=== PATIENT | male | born 1995 | race Caucasian/White ===

== ENCOUNTER 2018-01-23 19:51 | Emergency (ER) | payer SELFPAY ==
[~2018-01-23] VITALS: Ht 180.3 cm; Wt 117.9 kg
[~2018-01-23 19:51] MED LIST: AMOX500C2 PO; ANTI15DR4 RIGHT EAR; CIPR500T4 PO; HYDR-34 PO; METR500T21 PO; MUPI22OI TOP; NEOM10DR9 OT; ONDA8TAB13 PO
[2018-01-23] MEDS ORDERED: AMOXICILLIN 500 MG (POLYMOX) CAP PO STA (20:51)
[2018-01-23] MEDS ORDERED: NAPR-1071 PO (20:56)
[2018-01-23] MEDS ORDERED: AMOX500C2 PO (20:56)
--- NOTE | 2018-01-23 20:56 | ED EENT ---
History of Present Illness General Chief Complaint: Dental Problems/Pain Stated Complaint: DENTAL PAIN Nursing Triage Note: c/o r lower dental pain Source: patient Exam Limitations: no limitations History of Present Illness Date Seen by Provider: Jan 23, 2018 Time Seen by Provider: 20:52 Initial Comments To ER with right lower dental pain for about one week. Has been calling dentists all day today without yet being able to schedule an appointment. States that he had a Break off of one of his teeth on the bottom about a year ago but only a week ago did this actually start hurting. Timing/Duration: gradual Severity: moderate Location: mouth Allergies and Home Medications Allergies Coded Allergies: NKANo Known Allergies (Unverified Allergy, Mild, 02/10/09) Home Medications Ciprofloxacin HCl 500 Mg Tablet, 500 MG PO BID Prescribed by: BLAYNE LOYA on 05/04/16 1235 Metronidazole 500 Mg Tablet, 500 MG PO BID Prescribed by: BLAYNE LOYA on 05/04/16 1235 Ondansetron 8 Mg Tab.rapdis, 8 MG PO Q6H PRN for NAUSEA Prescribed by: BLAYNE LOYA on 05/04/16 1235 Patient Home Medication List Home Medication List Reviewed: Yes Review of Systems Constitutional: see HPI Eyes: No Symptoms Reported Ears: No Symptoms Reported Nose: no symptoms reported Mouth: see HPI Throat: no symptoms reported Respiratory: no symptoms reported Cardiovascular: no symptoms reported Musculoskeletal: no symptoms reported Past Fnftjnw-Iqjrnl-Jissjn Hx Patient Social History Alcohol Use: Denies Use Recreational Drug Use: No Recent Foreign Travel: No Contact w/Someone Who Travel: No Recent Infectious Disease Expo: No Physical Abuse: No Sexual Abuse: No Immunizations Up To Date Tetanus Booster (TDap): More than 5yrs Past Medical History Surgeries: No Respiratory: No Cardiac: No Neurological: No Reproductive Disorders: No Gastrointestinal: No Musculoskeletal: No Endocrine: No Cancer: No Psychosocial: No Nursing Suicide Risk Score: 0 Integumentary: No Blood Disorders: No Family Medical History Other Conditions/Hx Physical Exam Vital Signs Vital Signs - First Documented 01/23/18 20:45 Temp 98.4 Pulse 95 Resp 18 B/P (MAP) 159/75 (103) Pulse Ox 97 General Appearance: WD/WN, no apparent distress Eyes: bilateral eye normal inspection, bilateral eye PERRL, bilateral eye EOMI Ears: bilateral ear auricle normal, bilateral ear canal normal, bilateral ear TM normal Mouth/Throat: normal mouth inspection, pharynx normal, other (no fluctuant abscess palpable. No swelling.) Neck: non-tender, full range of motion Respiratory: no respiratory distress, no accessory muscle use Neurologic/Psychiatric: alert, normal mood/affect, oriented x 3 Skin: normal color, warm/dry Progress/Results/Core Measures My Orders Orders - SHANTANU FRAGOSO APRN Amoxicillin Capsule (Polymox Capsule) (01/23/18 20:51) Lidocaine 2% Viscous 15 Ml (Xylocaine Vi (01/23/18 21:00) Rx-Hydrocodone/Apap 5-325 Mg (Rx-Vicodin (01/23/18 21:00) Vital Signs/I&O 01/23/18 20:45 Temp 98.4 Pulse 95 Resp 18 B/P (MAP) 159/75 (103) Pulse Ox 97 Blood Pressure Mean: 103 Departure Impression Primary Impression: Pain, dental Disposition: 01 HOME, SELF-CARE Condition: Stable Departure-Patient Inst. Decision time for Depature: 20:54 Referrals: NO,LOCAL PHYSICIAN (PCP/Family) Primary Care Physician Patient Instructions: Dental Pain (DC) Add. Discharge Instructions: 1. Antibiotics as directed. Continue to call a dentist tomorrow to make an appointment to be seen as soon as possible. All discharge instructions reviewed with patient and/or family. Voiced understanding. Scripts Naproxen (Naprosyn) 500 Mg Tablet 500 MG PO BID PRN for PAIN-SEVERE, #30 TAB Prov: SHANTANU FRAGOSO APRN 01/23/18 Amoxicillin (Amoxicillin) 500 Mg Capsule 500 MG PO TID, #21 CAP Prov: SHANTANU FRAGOSO APRN 01/23/18 Images Mouth/Nose 1 - Tenderness SHANTANU FRAGOSO APRN Jan 23, 2018 20:56
[2018-01-23] MEDS ORDERED: LIDOCAINE 2% VISCOUS 15 ML UDC PO ONE (21:00)
[2018-01-23] MEDS ORDERED: RX-HYDROCODONE/APAP 5/325 MG #4 TAB PK PO PRN (21:00)
[2018-01-23 21:04] VITALS: BP 159/75
--- OUTSIDE RECORDS SUMMARY | 2018-01-24 12:12 | XMS REPORT ---
Author Author SHAHEEN CAGE [facility] eClinicalWorks Address Unknown Phone Unavailable Care Team Providers Care Division Human Resources Manager Name Role Phone SHAHEEN CAGE CP Unavailable Allergies, Adverse Reactions, Alerts Substance Reaction Event Type N.K.D.A. Info Not Available Non Drug Allergy Problems Problem Type Condition Code Onset Dates Condition Status Assessment Cellulitis, unspecified cellulitis site L03.90 Active Problem Abscess 682.9 Active Medications Medication Code System Code Instructions Start Date End Date Status Dosage Doxycycline Hyclate [facility] [address]-83 100 MG Orally Twice a day Nov 22, 2015 Dec 02, 2015 1 capsule Procedures Procedure Coding System Code Date Office Visit, Est Pt., Level 3 CPT-4 75754 Nov 22, 2015 Vital Signs Date/Time: Nov 22, 2015 Temperature 97.2 F Weight 252 lbs Height 5'10" in BMI 36.15 Index Blood Pressure Diastolic 80 mmHg Blood Pressure Systolic 148 mmHg Cardiac Monitoring Heart Rate 88 bpm BMIPercentile 99.11 % Wt Percentile 99.28 % Results No Known Results Summary Purpose eClinicalWorks Submission
--- OUTSIDE RECORDS SUMMARY | 2018-01-24 12:12 | XMS REPORT ---
Author Author TAMMI BOWIE [facility] eClinicalWorks Address Unknown Phone Unavailable Care Team Providers Care Flight Crew Time Clerk Name Role Phone TAMMI BOWIE CP Unavailable Allergies, Adverse Reactions, Alerts Substance Reaction Event Type N.K.D.A. Info Not Available Non Drug Allergy Problems Problem Type Condition Code Onset Dates Condition Status Assessment Abscess 682.9 Active Problem Abscess 682.9 Active Medications Medication Code System Code Instructions Start Date End Date Status Dosage Sulfamethoxazole-Trimethoprim [facility] [address]-40 800-160 MG Orally 2 times a day May 22, 2015 Jun 01, 2015 1 tablet Procedures Procedure Coding System Code Date Office Visit, Est Pt., Level 3 CPT-4 42161 May 22, 2015 Vital Signs Date/Time: May 22, 2015 Temperature 98.7 F Weight 264.5 lbs Height 5'10" in BMI 37.95 Index Blood Pressure Diastolic 90 mmHg Blood Pressure Systolic 152 mmHg Cardiac Monitoring Heart Rate 88 bpm BMIPercentile 99.47 % Wt Percentile 99.57 % Results No Known Results Summary Purpose eClinicalWorks Submission
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
== END 2018-01-23 21:04 | disposition home or self-care (01) ==
LOC: EDUNIT# 19:51 → ER 19:52
DX: K08.89 Other specified disorders of teeth and supporting structures (principal); Z88.1 Allergy status to other antibiotic agents
CPT/HCPCS: 99283

== ENCOUNTER 2022-03-12 18:55 | Emergency (ER) | payer SELFPAY ==
[~2022-03-12] VITALS: Ht 180 cm; Wt 120.0 kg
[~2022-03-12 18:55] MED LIST changes: -CIPR500T4 PO; +CIPR500T5 PO; +METR-145 PO; -METR500T21 PO; +NAPR-1071 PO; +NAPR-915 PO
[2022-03-12 19:03] VITALS: BP 154/107
--- NOTE | 2022-03-12 19:12 | ED GI ---
General Chief Complaint: Abdominal/GI Problems Stated Complaint: CONSTIPATION Source of Information: Patient Exam Limitations: No Limitations History of Present Illness Date Seen by Provider: March 12, 2022 Time Seen by Provider: 18:56 Initial Comments Patient to the ER by private conveyance chief complaint of significant abdominal pain and feeling the need to have a bowel movement. Last bowel movement was before Sunday. He has been trying since to have a bowel movement with Dulcolax, Gas-X, apple juice and water. He is not nauseated or having any fever. He a large sharp cramping pain while he was on the bathroom and was able to only move a little bit of liquid stool. He does not have a strong history of constipation/obstipation nor does he have any abdominal surgeries. Allergies and Home Medications Allergies Coded Allergies: LILLIANAANo Known Allergies (Unverified Allergy, Mild, 02/10/09) Patient Home Medication List Home Medication List Reviewed: Yes Amoxicillin (Amoxicillin) 500 Mg Capsule, 500 MG PO TID Prescribed by: SHANTANU FRAGOSO on 01/23/182055 Amoxicillin (Amoxicillin) 500 Mg Capsule, 500 MG PO TID Prescribed by: SHANTANU FRAGOSO on 06/10/18 174 Ciprofloxacin HCl (Ciprofloxacin HCl) 500 Mg Tablet, 500 MG PO BID Prescribed by: BLAYNE LOAY on 05/04/16 1235 Metronidazole (Metronidazole) 500 Mg Tablet, 500 MG PO BID Prescribed by: BLAYNE LOYA on 05/04/16 1235 Naproxen (Naprosyn) 500 Mg Tablet, 500 MG PO BID PRN for PAIN-SEVERE Prescribed by: SHANTANU FRAGOSO on 01/23/182055 Naproxen (Naproxen) 500 Mg Tablet, 500 MG PO BID Prescribed by: SHANTANU FRAGOSO on 06/10/18 174 Ondansetron (Ondansetron Odt) 8 Mg Tab.rapdis, 8 MG PO Q6H PRN for NAUSEA Prescribed by: BLAYNE LOYA on 05/04/16 1235 Review of Systems Review of Systems Constitutional: No chills, No diaphoresis EENTM: No Blurred Vision, No Double Vision Respiratory: Denies Cough, Denies Shortness of Air Cardiovascular: Denies Chest Pain, Denies Lightheadedness Gastrointestinal: Denies Constipated, Denies Diarrhea Genitourinary: Denies Burning, Denies Drainage Musculoskeletal: No back pain, No joint pain Skin: No pruritus, No rash Psychiatric/Neurological: Denies Headache, Denies Numbness All Other Systems Reviewed Negative Unless Noted: Yes Past Bzomogk-Vlsqdr-Hjaoyw Hx Patient Social History Tobacco Use?: No Use of E-Cig and/or Vaping dev: No Immunizations Up To Date Tetanus Booster (TDap): More than 5yrs Past Medical History Surgeries: No Respiratory: No Cardiac: No Neurological: No Reproductive Disorders: No Genitourinary: No Gastrointestinal: No Musculoskeletal: No Endocrine: No HEENT: No Cancer: No Psychosocial: No Integumentary: No Blood Disorders: No Family Medical History Other Conditions/Hx Physical Exam Vital Signs Capillary Refill : Height/Weight/BMI Height: 5'11.00" Weight: 280lbs. oz. 127.886499sc; 36.26 BMI Method:Stated General Appearance: WD/WN, mild distress HEENT: PERRL/EOMI, pharynx normal Neck: supple, normal inspection Respiratory: lungs clear, normal breath sounds, no respiratory distress, no accessory muscle use Cardiovascular: normal peripheral pulses, regular rate, rhythm Gastrointestinal: normal bowel sounds, non tender, soft Neurologic/Psychiatric: alert; No normal mood/affect (Anxious affect) Skin: normal color, diaphoresis Progress/Results/Core Measures Progress Progress Note : Time: 19:19 Progress Note Obstipation, recommended enemas and patient is to try this. Return precautions discussed. Departure Impression Primary Impression: Obstipation Disposition: 01 HOME, SELF-CARE Condition: Stable Departure-Patient Inst. Decision time for Depature: 19:11 Referrals: NO,LOCAL PHYSICIAN (PCP/Family) Primary Care Physician Patient Instructions: Constipation, Adult (DC) Add. Discharge Instructions: Continue to drink plenty of fluids. 1 capful of MiraLAX mixed in 6 to 8 ounces of liquid of your choice or Dulcolax with lots of water to drink. 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 Try and hold the fluid in for 10 to 15 minutes if possible before evacuating her bowels. Promptly return to the ER for severe, unrelenting pain not relieved by Tylenol or ibuprofen and Gas-X or if you develop high fever about 102.5 or other worrisome symptoms. All discharge instructions reviewed with patient and/or family. Voiced understanding. Work/School Note: Work Release Form Date Seen in the Emergency Department: March 12, 2022 Return to Work: March 14, 2022 Restrictions: No Restrictions DOROTHY HERNANDES March 12, 2022 19:12
== END 2022-03-12 19:15 | disposition home or self-care (01) ==
LOC: EDUNIT# 18:55 → ER 18:56
DX: K59.00 Constipation, unspecified (principal)
CPT/HCPCS: 99281

== ENCOUNTER 2022-03-16 11:15 | Inpatient (IN) | payer SELFPAY ==
[~2022-03-16] VITALS: Ht 180 cm; Wt 117.9 kg
--- NOTE | 2022-03-16 12:15 | ED General ---
General Chief Complaint: Abdominal/GI Problems Stated Complaint: CONSTIPATION Nursing Triage Note: PT AMBULATORY TO ER WITH VISITOR. REPORTS CONSTIPATION X 7 DAYS, STATES CAME TO ER ON SUNDAY, HAS BEEN USING EX-LAX, MIRALAX, PRUNE JUICE AND ENEMA WITHOUT RELIEF. (CHRIS DO) History of Present Illness Date Seen by Provider: Mar 16, 2022 Time Seen by Provider: 11:55 Initial Comments 26 year old male seen today with at least 7 day history of constipation. He is h aving significant sharp stabbing lower abdominal pain that he rates as 6/10 currently and can be as high as 10/10. He came to the ED and was seen by Dr. Graves at that time who recommended He try enemas. Thus far he has tried 4 enemas, drank prune juice, taken 2 doses of dulcolax, and has been taking 2 doses of ex-lax and 1 dase of miralax daily. Nothing has helped. thus far. He phillips s had diminished appetite and has only ate a handful of crackers and strawberries in the past 2 days. He began having nausea yesterday but has not had any emesis. He does not have a PCP. He reports going to urgent care at [facility] this morning who upon examining his abdomen recommended he be seen here. He has also been having dysuria, increased difficulties urinating, and feels as though he is unable to empty his bladder completely. (CHRIS DO) Allergies and Home Medications Allergies Coded Allergies: NKANo Known Allergies (Verified Allergy, Mild, 03/16/22) Patient Home Medication List Home Medication List Reviewed: Yes (JORDAN BARGER MD) Cranberry Extract (Cranberry) 200 Mg Capsule, 200 MG PO DAILY, (Reported) Entered as Reported by: CHUY MAYO on 03/17/22929 Last Action: Reviewed Docusate Sodium (Stool Softener) 100 Mg Capsule, 100 MG PO DAILY PRN for CONSTIPATION-1ST LINE, (Reported) Entered as Reported by: CHUY MAYO on 03/17/22928 Last Action: Reviewed Phenylephrine HCl (Sudafed PE) 10 Mg Tablet, 10 MG PO DAILY PRN for CONGESTION, (Reported) Entered as Reported by: CHUY MAYO on 03/17/22929 Last Action: Reviewed Polyethylene Glycol 3350 (Miralax) 17 Gram Powd.pack, 17 GM PO DAILY PRN for CONSTIPATION-2ND LINE, (Reported) Entered as Reported by: CHUY MAYO on 03/17/22 3657 Last Action: Reviewed Review of Systems Review of Systems Constitutional: No chills, No fever EENTM: No hearing loss, No vision loss, No mouth swelling Respiratory: No cough, No short of breath Cardiovascular: No chest pain, No palpitations Gastrointestinal: abdominal pain, constipation; No diarrhea; nausea; No vomiting Genitourinary: decreased output, dysuria; No hematuria, No incontinence; other (having to strain to go) Musculoskeletal: No back pain, No muscle weakness Skin: No change in color, No lesions, No rash Psychiatric/Neurological: Denies Headache, Denies Numbness, Denies Weakness Hematologic/Lymphatic: No Symptoms Reported Immunological/Allergic: no symptoms reported (CHRIS DO) Past Rmymalh-Cslcvh-Llwxap Hx Patient Social History Tobacco Use?: No Use of E-Cig and/or Vaping dev: No Substance use?: No Alcohol Use?: No Pt feels they are or have been: No (CHRIS DO) Immunizations Up To Date Tetanus Booster (TDap): More than 5yrs First/Initial COVID19 Vaccinat: RECEIVED, UNK WHEN Second COVID19 Vaccination Shyam: RECEIVED, UNK WHEN COVID19 Vaccine Optometric Aide: DILIP (CHRIS DO) Past Medical History Surgeries: No Respiratory: No Cardiac: No Neurological: No Reproductive Disorders: No Genitourinary: No Gastrointestinal: No Musculoskeletal: No Endocrine: No HEENT: No Cancer: No Psychosocial: No Integumentary: No Blood Disorders: No (CHRIS DO) Family Medical History Other Conditions/Hx (CHRIS DO) Physical Exam Vital Signs Vital Signs - First Documented 03/16/22 11:26 Temp 36.2 Pulse 90 Resp 20 B/P (MAP) 158/93 (114) Pulse Ox 98 O2 Delivery Room Air (JORDAN BARGER MD) Vital Signs Capillary Refill : (CHRIS DO) Height, Weight, BMI Height: 5'11.00" Weight: 280lbs. oz. 127.975824sb; 36.00 BMI Method:Stated General Appearance: WD/WN, Mild Distress (mild distress due to abdominal pain), Obese Eyes: Bilateral Eye Normal Inspection, Bilateral Eye PERRL, Bilateral Eye EOMI HEENT: PERRL/EOMI, Pharynx Normal Neck: Full Range of Motion, Non Tender, Supple Respiratory: Lungs Clear, Normal Breath Sounds, No Respiratory Distress Cardiovascular: Regular Rate, Rhythm, No Murmur, Normal Peripheral Pulses Gastrointestinal: Abnormal Bowel Sounds, Distended; No Rebound; Tenderness (diffusely, worst in LLQ and RLQ.) Back: Normal Inspection, No CVA Tenderness, No Vertebral Tenderness Extremity: Non Tender, No Pedal Edema Neurologic/Psychiatric: Alert, Oriented x3, No Motor/Sensory Deficits, Normal Mood/Affect Skin: Normal Color, Warm/Dry Lymphatic: No Adenopathy (CHRIS DO) Progress/Results/Core Measures Suspected Sepsis SIRS Temperature: Pulse: 90 Respiratory Rate: 20 Blood Pressure 158 /93 Mean: 114 (CHRIS DO) Results/Orders Lab Results Laboratory Tests Test 03/16/22 12:23 03/16/22 13:13 Range/Units Glucometer 102 70-110 MG/DL White Blood Count 14.6 H 4.3-11.0 10^3/uL Red Blood Count 4.71 4.30-5.52 10^6/uL Hemoglobin 13.7 13.3-17.7 g/dL Hematocrit 40 40-54 % Mean Corpuscular Volume 85 80-99 fL Mean Corpuscular Hemoglobin 29 25-34 pg Mean Corpuscular Hemoglobin Concent 34 32-36 g/dL Red Cell Distribution Width 12.1 10.0-14.5 % Platelet Count 305 130-400 10^3/uL Mean Platelet Volume 10.5 9.0-12.2 fL Immature Granulocyte % (Auto) 0 % Neutrophils (%) (Auto) 82 H 42-75 % Lymphocytes (%) (Auto) 12 12-44 % Monocytes (%) (Auto) 5 0-12 % Eosinophils (%) (Auto) 1 0-10 % Basophils (%) (Auto) 0 0-10 % Neutrophils # (Auto) 12.0 H 1.8-7.8 10^3/uL Lymphocytes # (Auto) 1.7 1.0-4.0 10^3/uL Monocytes # (Auto) 0.8 0.0-1.0 10^3/uL Eosinophils # (Auto) 0.1 0.0-0.3 10^3/uL Basophils # (Auto) 0.0 0.0-0.1 10^3/uL Immature Granulocyte # (Auto) 0.1 0.0-0.1 10^3/uL Neutrophils % (Manual) 77 % Lymphocytes % (Manual) 13 % Monocytes % (Manual) 10 % Blood Morphology Comment NORMAL Sodium Level 139 135-145 MMOL/L Potassium Level 3.2 L 3.6-5.0 MMOL/L Chloride Level 102 98-107 MMOL/L Carbon Dioxide Level 23 21-32 MMOL/L Anion Gap 14 5-14 MMOL/L Blood Urea Nitrogen 9 7-18 MG/DL Creatinine 0.78 0.60-1.30 MG/DL Estimat Glomerular Filtration Rate 127 BUN/Creatinine Ratio 12 Glucose Level 99 70-105 MG/DL Calcium Level 9.3 8.5-10.1 MG/DL (JORDAN BARGER MD) My Orders Orders - JORDAN BARGER MD Accucheck Stat ONCE (03/16/22 12:18) Ed Iv/Invasive Line Start (03/16/22 13:00) Cbc With Automated Diff (03/16/22 13:00) Basic Metabolic Panel (03/16/22 13:00) Ct Abdomen/Pelvis Wo (03/16/22 13:00) Ns Iv 1000 Ml (Sodium Chloride 0.9%) (03/16/22 13:00) Ondansetron Injection (Zofran Injectio (03/16/22 13:00) Manual Differential (03/16/22 13:13) Metronidazole 500mg/100ml Ivpb (Flagyl 5 (03/16/22 13:45) Piperacillin Sodium/Tazobactam (Zosyn Vi (03/16/22 13:45) (JORDAN BARGER MD) Medications Given in ED (JORDAN BARGER MD) Vital Signs/I&O 03/16/22 03/16/22 03/16/22 11:26 12:27 13:32 Temp 36.2 Pulse 90 88 81 Resp 20 18 20 B/P (MAP) 158/93 (114) 158/90 150/75 Pulse Ox 98 98 95 O2 Delivery Room Air Room Air Room Air (JORDAN BARGER MD) Vital Signs/I&O Capillary Refill : (DONATECHRIS) Blood Pressure Mean: 114 Progress Note : Time: 14:10 Progress Note Patient seen and examined by me, 26-year-old with 1 week of constipation symptoms. Intermittent nausea. Physical exam remarkable for diffuse lower abdominal tenderness but seems to be more specific to the left lower quadrant. Hyperactive high-pitched tinkling bowel sounds. I did do a rectal examination which showed minimal stool in the vault. No gross blood. No masses were appreciated. Labs were performed, elevated leukocytosis at 14,000. CT shows ruptured sigmoid diverticulitis with phlegmon versus abscess. Case has been discussed with Dr. Lagunas. Patient has been started on IV fluids as well as Zosyn and Flagyl. I have reviewed and agree with the medical student's documentation and plan of care. (JORDAN BARGER MD) Diagnostic Imaging Diagonstic Imaging: CT Comments [facility] [place] NAME: HUCatieCYRIL [facility] REC#: [id number] PT STATUS: REG ER : 1995 PHYSICIAN: JORDAN BARGER MD ADMIT DATE: 03/16/22/ER Draft Date of Exam:03/16/22 CT ABDOMEN/PELVIS WO PROCEDURE: CT abdomen and pelvis without contrast. TECHNIQUE: Multiple contiguous axial images were obtained through the abdomen and pelvis without the use of intravenous contrast. Auto Exposure Controls were utilized during the CT exam to meet ALARA standards for radiation dose reduction. INDICATION: Constipation and abdominal pain. Unenhanced images of liver, gallbladder, pancreas, adrenal glands and spleen are unremarkable. There is also no renal abnormality identified. The appendix has a normal appearance. There is mural thickening and numerous diverticula at the sigmoid colon with surrounding edema and/or inflammation. In addition, there is an approximately 2.6 x 3.8 cm extraluminal collection of gas and fluid adjacent to the proximal sigmoid colon which may represent phlegmon and developing abscess. Unopacified bladder is unremarkable in appearance. Note is made of mild lumbar spondylosis. IMPRESSION: Findings are most suggestive of acute sigmoid diverticulitis with perforation and adjacent phlegmon or developing abscess. Otherwise, no acute abnormality is identified within the abdomen or pelvis. Dictated on workstation # [id number] Dict: 03/16/22 1326 Trans: 03/16/22 1334 [facility] [id number] Interpreted by: JIMMIE VIZCARRA MD Electronically signed by: (JORDAN BARGER MD) Departure Communication (Admissions) Time/Spoke to Admitting Phy: 14:[address] Lagunas (JORDAN BARGER MD) Impression Primary Impression: Perforation of sigmoid colon due to diverticulitis Disposition: ADMITTED INPATIENT Condition: Stable Admissions Decision to Admit Reason: Admit from ER (General) Decision to Admit/Date: Mar 16, 2022 Time/Decision to Admit Time: 14:09 (JORDAN BARGER MD) Departure-Patient Inst. Referrals: NO,LOCAL PHYSICIAN (PCP/Family) Primary Care Physician CHRIS DO Mar 16, 2022 12:15 JORDAN BARGER MD Mar 16, 2022 14:14
[2022-03-16] MEDS ORDERED: NS IV 1000 ML 1,000 ML IV SCH ×2 (13:00→15:30)
[2022-03-16] MEDS ORDERED: ONDANSETRON 4 MG/2 ML (SDV) Z0FRAN IVP ONE (13:00)
[2022-03-16 13:19] LABS: BASOPHILS % (AUTO) 0 % (0-10); EOSINOPHILS # (AUTO) 0.1 10^3/uL (0.0-0.3); EOSINOPHILS % (AUTO) 1 % (0-10); HEMATOCRIT 40 % (40-54); HEMOGLOBIN 13.7 g/dL (13.3-17.7); LYMPHOCYTES # (AUTO) 1.7 10^3/uL (1.0-4.0); LYMPHOCYTES % (AUTO) 12 % (12-44); MEAN CORPUSCULAR HEMOGLOBIN 29 pg (25-34); MEAN CORPUSCULAR HGB CONC 34 g/dL (32-36); MEAN CORPUSCULAR VOLUME 85 fL (80-99); MEAN PLATELET VOLUME 10.5 fL (9.0-12.2); MONOCYTES # (AUTO) 0.8 10^3/uL (0.0-1.0); MONOCYTES % (AUTO) 5 % (0-12); NEUTROPHILS % (AUTO) 82 % (42-75); PLATELET COUNT 305 10^3/uL (130-400); WHITE BLOOD COUNT 14.6 10^3/uL (4.3-11.0)
[2022-03-16 13:32] LABS: POTASSIUM 3.2 MMOL/L (3.6-5.0)
[2022-03-16 13:33] LABS: CALCIUM 9.3 MG/DL (8.5-10.1)
--- NOTE | 2022-03-16 13:34 | Diagnostic Imaging Report ---
PROCEDURE: CT abdomen and pelvis without contrast. TECHNIQUE: Multiple contiguous axial images were obtained through the abdomen and pelvis without the use of intravenous contrast. Auto Exposure Controls were utilized during the CT exam to meet ALARA standards for radiation dose reduction. INDICATION: Constipation and abdominal pain. Unenhanced images of liver, gallbladder, pancreas, adrenal glands and spleen are unremarkable. There is also no renal abnormality identified. The appendix has a normal appearance. There is mural thickening and numerous diverticula at the sigmoid colon with surrounding edema and/or inflammation. In addition, there is an approximately 2.6 x 3.8 cm extraluminal collection of gas and fluid adjacent to the proximal sigmoid colon which may represent phlegmon and developing abscess. Unopacified bladder is unremarkable in appearance. Note is made of mild lumbar spondylosis. IMPRESSION: Findings are most suggestive of acute sigmoid diverticulitis with perforation and adjacent phlegmon or developing abscess. Otherwise, no acute abnormality is identified within the abdomen or pelvis. Dictated by: Dictated on workstation # [id number]
[2022-03-16 13:38] LABS: CREATININE SERUM 0.78 MG/DL (0.60-1.30)
[2022-03-16 13:39] LABS: LYMPHOCYTES % (MANUAL) 13 %; MONOCYTES % (MANUAL) 10 %; NEUTROPHILS % (MANUAL) 77 %; RBC MORPH NORMAL
[2022-03-16] MEDS ORDERED: PIPERACILLIN SODIUM/TAZOBACTAM 4.5 GM in NS (IVPB) 100 ML IV ONE (13:45)
[2022-03-16] MEDS ORDERED: metroNIDAZOLE 500MG/100ML IVPB 100 ML IV ONE (13:45)
[2022-03-16] MEDS ORDERED: fentaNYL INJ 100 MCG/2 ML AMP IVP ONE (14:30)
[2022-03-16] MEDS: NS IV 1000 ML 1,000 ML IV SCH ×2 (15:39→23:49)
[2022-03-16] MEDS ORDERED: fentaNYL INJ 100 MCG/2 ML AMP IVP PRN (16:00)
[2022-03-16] MEDS ORDERED: ONDANSETRON 4 MG/2 ML (SDV) Z0FRAN IVP PRN ×2 (16:00→19:00)
[2022-03-16 16:28] VITALS: BP 147/84
[2022-03-16 17:02] VITALS: BP 158/93
--- NOTE | 2022-03-16 17:31 | Consultation - Surgery ---
History of Present Illness History of Present Illness Patient Consulted On(xavier/time) 03/16/22 17:25 Time Seen by Provider: 15:02 History of Present Illness Surgery asked to admit pt for Acute Perforated Diverticulitis HPI per ED: 26 year old male seen today with at least 7 day history of constip ation. He is having significant sharp stabbing lower abdominal pain that he rates as 6/10 currently and can be as high as 10/10. He came to the ED and was seen by Dr. Graves at that time who recommended He try enemas. Thus far he has tried 4 enemas, drank prune juice, taken 2 doses of dulcolax, and has been taking 2 doses of ex-lax and 1 dase of miralax daily. Nothing has helped. thus far. He has had diminished appetite and has only ate a handful of crackers and strawberries in the past 2 days. He began having nausea yesterday but has not had any emesis. He does not have a PCP. He reports going to urgent care at [facility] this morning who upon examining his abdomen recommended he be seen here. He has also been having dysuria, increased difficulties urinating, and feels as though he is unable to empty his bladder completely. When I spoke to pt he stated that his pain has always been in the LLQ and suprapubic area. He has not really been able to eat. Pain is not getting any better and worse with movment. Agree with ED HPI; confirmed with pt. Allergies and Home Medications Allergies Coded Allergies: NKANo Known Allergies (Verified Allergy, Mild, 03/16/22) Patient Home Medication List Home Medication List Reviewed: Yes Amoxicillin (Amoxicillin) 500 Mg Capsule, 500 MG PO TID Prescribed by: SHANTANU FRAGOSO on 01/23/182055 Amoxicillin (Amoxicillin) 500 Mg Capsule, 500 MG PO TID Prescribed by: SHANTANU FRAGOSO on 06/10/18 1747 Ciprofloxacin HCl (Ciprofloxacin HCl) 500 Mg Tablet, 500 MG PO BID Prescribed by: BLAYNE LOYA on 05/04/16 123 Metronidazole (Metronidazole) 500 Mg Tablet, 500 MG PO BID Prescribed by: BLAYNE LOYA on 05/04/16 1235 Naproxen (Naprosyn) 500 Mg Tablet, 500 MG PO BID PRN for PAIN-SEVERE Prescribed by: SHANTANU FRAGOSO on 01/23/182055 Naproxen (Naproxen) 500 Mg Tablet, 500 MG PO BID Prescribed by: SHANTANU FRAGOSO on 06/10/18 174 Ondansetron (Ondansetron Odt) 8 Mg Tab.rapdis, 8 MG PO Q6H PRN for NAUSEA Prescribed by: BLAYNE LOYA on 05/04/16 1235 Past Tqjtheh-Yyryqv-Jwitcs Hx Patient Social History Smoking Status: Never a Smoker Type Used: Electronic/Vapor 2nd Hand Smoke Exposure: No Recent Hopitalizations: No (DENIES MEDICAL HX.) Alcohol Use?: No Have you traveled recently?: No Immunizations Up To Date Tetanus Booster (TDap): More than 5yrs Surgeries History of Surgeries: No Respiratory History of Respiratory Disorde: No Cardiovascular History of Cardiac Disorders: No Neurological History of Neurological Disord: No Reproductive System Hx Reproductive Disorders: No Genitourinary History of Genitourinary Disor: No Gastrointestinal History of Gastrointestinal Di: No Musculoskeletal History of Musculoskeletal Dis: No Endocrine History of Endocrine Disorders: No HEENT History of HEENT Disorders: No Cancer History of Cancer: No Psychosocial History of Psychiatric Problem: No Integumentary History of Skin or Integumenta: No Blood Transfusions History of Blood Disorders: No Family Medical History Significant Family History: Other Conditions/Hx (denied any DM in his family) Review of Systems-General Constitutional: diaphoresis, malaise, weakness EENTM: No blurred vision, No double vision, No mouth swelling, No epistaxis Respiratory: No dyspnea on exertion, No hemoptysis, No short of breath Cardiovascular: No chest pain, No palpitations Gastrointestinal: LLQ; No hematemesis; loss of appetite; No vomiting Genitourinary: dysuria, frequency; No hematuria, No incontinence Musculoskeletal: No joint pain, No joint swelling, No muscle pain, No muscle stiffness Skin: No change in color, No change in hair/nails Psychiatric/Neurological: Denies Anxiety, Denies Depressed, Denies Seizure, Denies Tremors Physical Exam-General Problems Physical Exam Vital Signs Vital Signs - First Documented 03/16/22 03/16/22 11:26 17:02 Temp 36.2 Pulse 90 Resp 20 B/P (MAP) 158/93 (114) Pulse Ox 98 O2 Delivery Room Air FiO2 21 Capillary Refill : General Appearance: mild distress (secondary to pain), obese Eyes: Bilateral Eye PERRL, Bilateral Eye EOMI HEENT: pharynx normal; No scleral icterus (R), No scleral icterus (L) Neck: non-tender, full range of motion, supple Respiratory: chest non-tender, lungs clear, normal breath sounds, no respir atory distress, no accessory muscle use Cardiovascular: regular rate, rhythm, no murmur Gastrointestinal: soft, no organomegaly, tenderness (mostly LLQ and some suprapubic, pt does not have difffuse peritonitis); No hernia Back: no CVA tenderness, no vertebral tenderness Extremities: normal range of motion, no pedal edema, no calf tenderness Neurologic/Psychiatric: manager dish II-XII nml as tested, no motor/sensory deficits, alert, normal mood/affect, oriented x 3 Skin: normal color, warm/dry Lymphatic: no adenopathy (neck, axilla or groin) Data Review Labs Laboratory Tests 03/16/22 12:23: Glucometer 102 03/16/22 13:13: White Blood Count 14.6H, Red Blood Count 4.71, Hemoglobin 13.7, Hematocrit 40, Mean Corpuscular Volume 85, Mean Corpuscular Hemoglobin 29, Mean Corpuscular Hemoglobin Concent 34, Red Cell Distribution Width 12.1, Platelet Count 305, Mean Platelet Volume 10.5, Immature Granulocyte % (Auto) 0, Neutrophils (%) (Auto) 82H, Lymphocytes (%) (Auto) 12, Monocytes (%) (Auto) 5, Eosinophils (%) (Auto) 1, Basophils (%) (Auto) 0, Neutrophils # (Auto) 12.0H, Lymphocytes # (Auto) 1.7, Monocytes # (Auto) 0.8, Eosinophils # (Auto) 0.1, Basophils # (Auto) 0.0, Immature Granulocyte # (Auto) 0.1, Neutrophils % (Manual) 77, Lymphocytes % (Manual) 13, Monocytes % (Manual) 10, Blood Morphology Comment NORMAL, Sodium Level 139, Potassium Level 3.2L, Chloride Level 102, Carbon Dioxide Level 23, Anion Gap 14, Blood Urea Nitrogen 9, Creatinine 0.78, Estimat Glomerular Filtration Rate 127, BUN/Creatinine Ratio 12, Glucose Level 99, Calcium Level 9.3 Radiology Date of Exam:03/16/22 CT ABDOMEN/PELVIS WO PROCEDURE: CT abdomen and pelvis without contrast. TECHNIQUE: Multiple contiguous axial images were obtained through the abdomen and pelvis without the use of intravenous contrast. Auto Exposure Controls were utilized during the CT exam to meet ALARA standards for radiation dose reduction. INDICATION: Constipation and abdominal pain. Unenhanced images of liver, gallbladder, pancreas, adrenal glands and spleen are unremarkable. There is also no renal abnormality identified. The appendix has a normal appearance. There is mural thickening and numerous diverticula at the sigmoid colon with surrounding edema and/or inflammation. In addition, there is an approximately 2.6 x 3.8 cm extraluminal collection of gas and fluid adjacent to the proximal sigmoid colon which may represent phlegmon and developing abscess. Unopacified bladder is unremarkable in appearance. Note is made of mild lumbar spondylosis. IMPRESSION: Findings are most suggestive of acute sigmoid diverticulitis with perforation and adjacent phlegmon or developing abscess. Otherwise, no acute abnormality is identified within the abdomen or pelvis. Dictated on workstation # [id number] Dict: 03/16/22 1326 Trans: 03/16/22 1334 [facility] [id number] Interpreted by: JIMMIE VIZCARRA MD Assessment/Plan Assessment/Plan Assessment/Plan Acute Diverticulitis with perforation and abscess Pt has confirmed perforation on CT; I reviewed myself and then went over it with Radiology to discuss possible drainage. I also discussed his case with ED provider. I had long talk with pt, going over his findings and talking about next steps, etc. Because he does not have diffuse peritonitis he does not need to go to surgery emergently. In addition, there is not really diffuse free air or fluid in the abdomen; just one phlegmon under the sigmoid colon. Radiologist does not think there is enough to drain and would be very difficult to try and get it. I talked to pt about colon resection with colostomy, colonoscopy and even Laparoscopic drainage to try and avoid the colostomy. I think the best thing for him right now is to try NPO, IV fluids, pain control, anti-emetics and IV ABX hopefully to avoid surgery during this stay. I think as long as he does not develop peritonitis this is a reasonable expectation. He understood and was very happy to finally know what is going on and have a treatment plan. Pt will need to be admitted inpt for more than 2 days because of the phlegmon and need for IV ABX. DARIA WHITLOCK DO Mar 16, 2022 17:31
[2022-03-16] MEDS ORDERED: PIPERACILLIN SODIUM/TAZOBACTAM 4.5 GM in NS (IVPB) 100 ML IV SCH (20:00)
[2022-03-16 20:03] VITALS: BP 153/88
[2022-03-16] MEDS: PIPERACILLIN SODIUM/TAZOBACTAM 4.5 GM in NS (IVPB) 100 ML IV SCH (20:18)
[2022-03-16] MEDS: fentaNYL INJ 100 MCG/2 ML AMP IVP PRN (20:19)
[2022-03-16] MEDS ORDERED: metroNIDAZOLE 500 MG/100 ML IVPB (PRE-MIX) IV SCH (22:00)
[2022-03-16 23:52] VITALS: BP 129/70
[2022-03-16] MEDS: metroNIDAZOLE 500 MG/100 ML IVPB (PRE-MIX) IV SCH (23:56)
[2022-03-17] MEDS: PIPERACILLIN SODIUM/TAZOBACTAM 4.5 GM in NS (IVPB) 100 ML IV SCH ×3 (03:34→20:46)
[2022-03-17 04:00] VITALS: BP 135/75
[2022-03-17] MEDS: metroNIDAZOLE 500 MG/100 ML IVPB (PRE-MIX) IV SCH ×3 (07:15→22:40)
[2022-03-17] MEDS: fentaNYL INJ 100 MCG/2 ML AMP IVP PRN (07:40)
[2022-03-17 08:00] VITALS: BP 140/63
[2022-03-17] MEDS ORDERED: POLY17PO6 PO (09:28)
[2022-03-17] MEDS ORDERED: DOCU-26 PO (09:29)
[2022-03-17] MEDS ORDERED: PHEN-832 PO (09:30)
[2022-03-17] MEDS ORDERED: CRAN200C PO (09:30)
[2022-03-17] MEDS: NS IV 1000 ML 1,000 ML IV SCH ×3 (09:54→18:41)
[2022-03-17 11:31] VITALS: BP 114/60
--- NOTE | 2022-03-17 12:58 | Progress Note ---
Subjective Date Seen by a Provider: Mar 17, 2022 Time Seen by a Provider: 11:00 Subjective/Events-last exam doing much better. less pain. has had 2 loose BM's. ambulating well. Objective Exam Vital Signs Date Time Temp Pulse Resp B/P (MAP) Pulse Ox O2 Delivery O2 Flow Rate FiO2 03/17/22 11:31 36.5 78 18 114/60 (78) 98 Room Air 03/17/22 08:00 36.4 89 14 140/63 (88) 97 Room Air 03/17/22 08:00 Room Air 03/17/22 04:00 36.8 72 17 135/75 (95) 96 Room Air 03/16/22 23:52 37.2 90 17 129/70 (89) 96 Room Air 03/16/22 20:42 99 Room Air 03/16/22 20:21 Room Air 03/16/22 20:03 36.0 91 20 153/88 (109) 95 Room Air 03/16/22 17:02 36.2 90 98 21 03/16/22 16:28 36.1 87 20 147/84 (105) 95 Room Air 03/16/22 15:00 Room Air 03/16/22 14:39 95 18 109/58 100 Room Air 03/16/22 14:18 99 18 130/69 100 Room Air 03/16/22 13:32 81 20 150/75 95 Room Air l I & O 03/17/22 07:00 Intake Total 300 ml Output Total 500 ml Balance -200 ml Capillary Refill : General Appearance: No Apparent Distress HEENT: PERRL/EOMI Neck: Full Range of Motion Respiratory: Chest Non Tender, Lungs Clear, Normal Breath Sounds Cardiovascular: Regular Rate, Rhythm Gastrointestinal: soft, tenderness Extremity: Normal Capillary Refill Neurologic/Psychiatric: Alert, Oriented x3 Skin: Normal Color Lymphatic: No Adenopathy Results Lab Laboratory Tests 03/16/22 13:13: White Blood Count 14.6H, Red Blood Count 4.71, Hemoglobin 13.7, Hematocrit 40, Mean Corpuscular Volume 85, Mean Corpuscular Hemoglobin 29, Mean Corpuscular Hemoglobin Concent 34, Red Cell Distribution Width 12.1, Platelet Count 305, Mean Platelet Volume 10.5, Immature Granulocyte % (Auto) 0, Neutrophils (%) (Auto) 82H, Lymphocytes (%) (Auto) 12, Monocytes (%) (Auto) 5, Eosinophils (%) (Auto) 1, Basophils (%) (Auto) 0, Neutrophils # (Auto) 12.0H, Lymphocytes # (Auto) 1.7, Monocytes # (Auto) 0.8, Eosinophils # (Auto) 0.1, Basophils # (Auto) 0.0, Immature Granulocyte # (Auto) 0.1, Neutrophils % (Manual) 77, Lymphocytes % (Manual) 13, Monocytes % (Manual) 10, Blood Morphology Comment NORMAL, Sodium Level 139, Potassium Level 3.2L, Chloride Level 102, Carbon Dioxide Level 23, Anion Gap 14, Blood Urea Nitrogen 9, Creatinine 0.78, Estimat Glomerular Filtration Rate 127, BUN/Creatinine Ratio 12, Glucose Level 99, Calcium Level 9.3 Assessment/Plan Assessment/Plan Assess & Plan/Chief Complaint contained sigmoid perforation. cont abx. start clears. JAMAL GARRETT MD Mar 17, 2022 12:58
[2022-03-17 15:14] VITALS: BP 144/74
[2022-03-17 19:06] VITALS: BP 158/90
[2022-03-17 23:08] VITALS: BP 139/76
[2022-03-18] MEDS: PIPERACILLIN SODIUM/TAZOBACTAM 4.5 GM in NS (IVPB) 100 ML IV SCH ×2 (03:55→11:51)
[2022-03-18 03:59] VITALS: BP 127/75
[2022-03-18 05:42] LABS: BASOPHILS % (AUTO) 0 % (0-10); EOSINOPHILS # (AUTO) 0.2 10^3/uL (0.0-0.3); EOSINOPHILS % (AUTO) 2 % (0-10); HEMATOCRIT 39 % (40-54); HEMOGLOBIN 12.7 g/dL (13.3-17.7); LYMPHOCYTES # (AUTO) 2.3 10^3/uL (1.0-4.0); LYMPHOCYTES % (AUTO) 25 % (12-44); MEAN CORPUSCULAR HEMOGLOBIN 28 pg (25-34); MEAN CORPUSCULAR HGB CONC 33 g/dL (32-36); MEAN CORPUSCULAR VOLUME 87 fL (80-99); MEAN PLATELET VOLUME 10.3 fL (9.0-12.2); MONOCYTES # (AUTO) 0.6 10^3/uL (0.0-1.0); MONOCYTES % (AUTO) 7 % (0-12); NEUTROPHILS % (AUTO) 66 % (42-75); PLATELET COUNT 260 10^3/uL (130-400); WHITE BLOOD COUNT 9.1 10^3/uL (4.3-11.0)
[2022-03-18] MEDS: metroNIDAZOLE 500 MG/100 ML IVPB (PRE-MIX) IV SCH ×2 (06:02→15:00)
[2022-03-18] MEDS: NS IV 1000 ML 1,000 ML IV SCH (07:27)
[2022-03-18 08:00] VITALS: BP 129/74
[2022-03-18 12:00] VITALS: BP 122/93
--- NOTE | 2022-03-18 12:16 | Progress Note ---
Subjective Date Seen by a Provider: Mar 18, 2022 Time Seen by a Provider: 10:30 Subjective/Events-last exam Patient seen with Dr. Cassidy. Patient reports doing well. Denies any abdominal pain. Having BMs. Denies any fever/chills. Objective Exam Vital Signs Date Time Temp Pulse Resp B/P (MAP) Pulse Ox O2 Delivery O2 Flow Rate FiO2 03/18/22 08:00 96 Room Air 03/18/22 08:00 36.0 87 18 129/74 (92) 99 Room Air 03/18/22 03:59 36.2 64 16 127/75 (92) 98 Room Air 03/17/22 23:08 36.7 75 18 139/76 (97) 99 Room Air 03/17/22 22:24 95 Room Air 03/17/22 20:30 97 Room Air 03/17/22 19:06 36.6 87 16 158/90 (112) 97 Room Air 03/17/22 15:14 36.5 85 18 144/74 (97) 95 Room Air I & O 03/18/22 07:00 Intake Total 1670 ml Output Total 425 ml Balance 1245 ml Capillary Refill : General Appearance: No Apparent Distress, WD/WN, Obese Neck: Normal Inspection, Supple Respiratory: No Accessory Muscle Use, No Respiratory Distress Cardiovascular: Regular Rate, Rhythm, No Edema Gastrointestinal: normal bowel sounds, non tender, soft Extremity: Normal Inspection, Normal Range of Motion Neurologic/Psychiatric: Alert, Oriented x3 Skin: Normal Color, Warm/Dry Results Lab Laboratory Tests 03/18/22 05:29: White Blood Count 9.1, Red Blood Count 4.48, Hemoglobin 12.7L, Hematocrit 39L, Mean Corpuscular Volume 87, Mean Corpuscular Hemoglobin 28, Mean Corpuscular Hemoglobin Concent 33, Red Cell Distribution Width 12.2, Platelet Count 260, Mean Platelet Volume 10.3, Immature Granulocyte % (Auto) 0, Neutrophils (%) (Auto) 66, Lymphocytes (%) (Auto) 25, Monocytes (%) (Auto) 7, Eosinophils (%) (Auto) 2, Basophils (%) (Auto) 0, Neutrophils # (Auto) 6.0, Lymphocytes # (Auto) 2.3, Monocytes # (Auto) 0.6, Eosinophils # (Auto) 0.2, Basophils # (Auto) 0.0, Immature Granulocyte # (Auto) 0.0 Assessment/Plan Assessment/Plan Assess & Plan/Chief Complaint A 26 year old male with diverticulitis with contained perforation VSS WBC 9.1 Start low residue diet and if tolerates diet than may DC home. ABHAY LAMAR TECHNICAL WRITING LEAD/MGR Mar 18, 2022 12:16
[2022-03-18] MEDS ORDERED: METR-145 PO (12:19)
[2022-03-18] MEDS ORDERED: AMOX-355 PO (12:19)
--- NOTE | 2022-03-18 12:20 | Discharge Inst-Surgical ---
D/C Lap Instructions-KIDO Reconcile Patient Problems Problems Reviewed?: Yes New, Converted, or Re-Newed RX: RX on Chart Follow Up Appt in [address] Lagunas Activity as tolerated No driving for 24 hours No driving while on pain medications Low residue diet for 6 weeks. Avoid Alcohol, Caffeine, Spicy [place] and Acid foods. Drink 64 fluid oz or more of fluids per day. Symptoms to Report: Fever over 101 degree F, Nausea/Vomiting If any problems/questions: Contact your physician or go to Emergency Room ABHAY LAMAR APRN Mar 18, 2022 12:20
[2022-03-18 16:05] VITALS: BP 122/93
[2022-03-18 16:11] VITALS: BP 169/91
== END 2022-03-18 16:05 | disposition home or self-care (01) | DRG 392 ==
LOC: EDUNIT# 11:15 → ER 11:17 → 4TH 14:05
PROVIDERS: ADMIT Surgery; ATTEND Surgery
DX: K57.20 Diverticulitis of large intestine with perforation and abscess without bleeding (principal)
CPT/HCPCS: 36415; 74176; 80048; 82947; 85007; 85025; 85027; 94664; 94760

== ENCOUNTER 2022-04-19 06:38 | Outpatient (CLI) | payer SELFPAY ==
[~2022-04-19] VITALS: Ht 177.8 cm; Wt 120.5 kg
[~2022-04-19 06:38] MED LIST changes: +AMOX-355 PO; +CRAN200C PO; +DOCU-26 PO; +PHEN-832 PO; +POLY17PO6 PO
== END 2022-04-20 10:16 | disposition home or self-care (01) ==
LOC: PREOP 06:38
PROVIDERS: ATTEND Surgery
DX: Z01.818 Encounter for other preprocedural examination (principal)